=== PATIENT | male | born 1975 | race Caucasian/White ===

== ENCOUNTER 2021-03-30 11:57 | Emergency (ER) | payer OTHER ==
[~2021-03-30] VITALS: Ht 180.3 cm; Wt 106.6 kg
--- NOTE | 2021-03-30 12:00 | NUR ---
AAOX3, CAME TO ER C/O MIDSTERNAL CHEST PAIN STARTED AROUND 730AM. RESP IS EVEN AND UNBLABORED WITH NO APPARENT DISTRESS NOTED. BASELINE EKG: NSR. SKIN IS WARM AND DRY. DR ARELLANO AT FOR EVAL. PLACED ON PRODUCTION CLOTH CUTTER. WILL CONTINUOUSLY MONITOR.
--- NOTE | 2021-03-30 12:09 | NUR ---
EKG BEING DONE AT BEDSIDE
--- NOTE | 2021-03-30 12:10 | NUR ---
RADIOLOGY AT BEDSIDE
[2021-03-30] MEDS ORDERED: ASPIRIN 325 MG TABLET ONE (12:13)
[2021-03-30] MEDS: ASPIRIN 325 MG TABLET PO ONE (12:15)
[2021-03-30 12:19] LABS: BASOPHILS % (AUTO) 0.4 % (0.0-2.0); EOSINOPHILS % (AUTO) 2.7 % (0.0-6.0); HEMATOCRIT 43 % (39-51); HEMOGLOBIN 14.7 g/dL (13.5-17.5); LYMPHOCYTES % (AUTO) 23.8 % (20.0-44.0); MEAN CORPUSCULAR HGB CONC 34 g/dl (31.0-36.0); MEAN CORPUSCULAR VOLUME 95 fL (80-96); MONOCYTES # (AUTO) 0.8 K/uL (0.1-1.30); NEUTROPHILS # (AUTO) 5.2 K/uL (1.8-8.9); NEUTROPHILS % (AUTO) 63.1 % (43.0-81.0); PLATELET COUNT (AUTO) 199 K/uL (150-450); WHITE BLOOD COUNT (AUTO) 8.2 K/uL (4.3-11.0)
[2021-03-30 12:43] LABS: CALCIUM, SERUM 8.6 mg/dL (8.5-10.1); CARBON DIOXIDE 29 mmol/L (21-32); CHLORIDE 99 mmol/L (98-107); CREATININE 1.4 mg/dL (0.6-1.3); GLUCOSE 102 mg/dL (74-106); POTASSIUM 3.6 mmol/L (3.5-5.1); SODIUM SERUM 135 mmol/L (136-145); UREA NITROGEN, BLOOD 18 mg/dL (7-18)
[2021-03-30 13:46] VITALS: BP 132/75
--- NOTE | 2021-03-30 13:46 | NUR ---
IV removed. Catheter intact and site benign. Pressure and 4x4 applied to site. No bleeding noted.Patient discharged to home in stable condition. Written and verbal after care instructions given. Patient verbalizes understanding of instruction.
== END 2021-03-30 13:47 | disposition home or self-care (01) ==
LOC: ER 12:02
DX: R07.89 Other chest pain (principal)
CPT/HCPCS: 36415; 71045-TC; 80048-TC; 84484-TC; 85025-TC